=== PATIENT | female | born 1995 | race Caucasian/White ===

== ENCOUNTER 2020-11-29 00:27 | Emergency (ER) | payer OTHER ==
[~2020-11-29 00:27] MED LIST: ACETAMINOPHEN500 M1 PO; BUSPIRONE HCL15 MG PO; CYCLOBENZAPRINE10 MG PO; IBUPROFEN800 MG PO; KEFLEX250 MG PO; MACROBID100 MG PO; NAPROXEN500 MG PO
[2020-11-29] MEDS ORDERED: PERCOCET 5-3251 EACH PO (01:36)
== END 2020-11-29 02:06 | disposition home or self-care (01) ==
LOC: FER 00:27
DX: S92.531A Displaced fracture of distal phalanx of right lesser toe(s), initial encounter for closed fracture (principal); S93.601A Unspecified sprain of right foot, initial encounter; F17.210 Nicotine dependence, cigarettes, uncomplicated; X50.1XXA Overexertion from prolonged static or awkward postures, initial encounter; Y92.009 Unspecified place in unspecified non-institutional (private) residence as the place of occurrence of the external cause
CPT/HCPCS: 73610; 73630

== ENCOUNTER 2021-01-15 11:55 | Emergency (ER) | payer OTHER ==
[~2021-01-15 11:55] MED LIST changes: +PERCOCET 5-3251 EACH PO
[2021-01-15 13:28] LABS: BILIRUBIN 1+ mg/dL (NEGATIVE); BLOOD NEGATIVE Ery/uL (NEGATIVE); COLOR YELLOW (YELLOW); GLUCOSE (U) NORMAL (NORMAL); LEUKOCYTES NEGATIVE Leu/uL (NEGATIVE); NITRITE NEGATIVE (NEGATIVE); PROTEIN TRACE (LOW) mg/dL (NEGATIVE); SPECIFIC GRAVITY >=1.030 (1.001-1.030); UROBILINOGEN 0.2 mg/dL (0.2-1.0); pH 5.5 (5.0-9.0)
[2021-01-15 13:29] LABS: CLARITY SLIGHTLY HAZY (CLEAR)
[2021-01-15 13:32] LABS: BACTERIA 1+
[2021-01-15 13:52] LABS: BASOPHIL 0.8 % (0-2); EOSINOPHIL 1.4 % (0-5); HCT 39.5 % (37.0-47.0); HGB 13.5 g/dl (12.5-16.0); LYMPHOCYTE 26.5 % (15-48); MCH 29.9 pg (25.0-31.0); MCHC 34.2 g/dL (32.0-36.0); MCV 87.4 fL (78.0-100.0); MONOCYTE 4.9 % (0-12); MPV 10.1 fL (6.0-9.5); NEUTROPHIL 66.2 % (41-80); NRBC 0; PLT 205 K/uL (150-400); RBC 4.52 M/uL (4.20-5.40); RDW 12.2 % (11.5-14.0); WBC 6.3 K/uL (4.0-10.5)
[2021-01-15 14:07] LABS: ALBUMIN 4.2 g/dL (3.4-5.0); BILIRUBIN - TOTAL 0.6 mg/dL (0.2-1.0); BUN/CREAT RATIO (CALC) 21.3 RATIO; CREATININE 0.75 mg/dL (0.51-0.95); GLOBULIN (CALCULATION) 3.5 g/dL; POTASSIUM 3.9 mmol/L (3.5-5.1); TOTAL PROTEIN 7.7 g/dL (6.4-8.2)
[2021-01-15] MEDS ORDERED: PEPCID AC20 MG PO (18:11)
[2021-01-15] MEDS ORDERED: ZOFRAN4 M1 PO (18:11)
[2021-01-15] MEDS ORDERED: MACROBID100 MG PO (18:11)
== END 2021-01-15 18:42 | disposition home or self-care (01) ==
LOC: FER 11:55
PROVIDERS: Emergency Medicine
DX: N39.0 Urinary tract infection, site not specified (principal); R19.7 Diarrhea, unspecified; F17.210 Nicotine dependence, cigarettes, uncomplicated; Z87.42 Personal history of other diseases of the female genital tract
CPT/HCPCS: 36415; 80053; 81001; 82150; 83690; 85025; J2270; J2405; J7030; Q9967

== ENCOUNTER 2021-12-02 00:25 | Emergency (ER) | payer OTHER ==
[~2021-12-02 00:25] MED LIST changes: +PEPCID AC20 MG PO; +ZOFRAN4 M1 PO
[2021-12-02] MEDS ORDERED: AMOX TR-K CLV1 EAC4 PO (02:05)
== END 2021-12-02 02:46 | disposition home or self-care (01) ==
LOC: FER 00:25
DX: S61.451A Open bite of right hand, initial encounter (principal); S61.452A Open bite of left hand, initial encounter; F17.200 Nicotine dependence, unspecified, uncomplicated; Z23 Encounter for immunization; W55.01XA Bitten by cat, initial encounter; Y92.009 Unspecified place in unspecified non-institutional (private) residence as the place of occurrence of the external cause
CPT/HCPCS: 73130; 90471; 90715